=== PATIENT | male | born 1930 | race Caucasian/White ===

== ENCOUNTER 2016-06-03 08:03 | Inpatient (IN) | payer OTHER ==
[~2016-06-03] VITALS: Ht 180.3 cm; Wt 79.0 kg
[~2016-06-03 08:03] MED LIST: ADVAIR 100/501 DISK IH; ADVAIR HFA120 INHALA IH; ALBUTEROL SULF8.5 GM IH; ASPIR 8181 M1 PO; AZITHROMYCIN250 MG PO; B-121000 MC2 PO; CARVEDILOL3.125 MG PO; COMPAZINE10 MG PO; COREG3.125 M1 PO; COUMADIN5 MG PO; COZAAR100 MG PO; ENOXAPARIN80 MG/0.8; FISH OIL 1,0001 EAC8 PO; FOLIC ACID1 MG PO; FUROSEMIDE20 MG; FUROSEMIDE40 MG; FUROSEMIDE40 MG PO; GUAIFENESIN WI120 M1 PO; LASIX20 MG PO; LEVAQUIN500 MG PO; LEVOFLOXACIN250 MG; LISINOPRIL20 MG PO; MEDROL DOSEPAK4 MG PO; MUCINEX1200 MG PO; OMEPRAZOLE40 M1; PRAVACHOL10 MG PO; PREDNISONE20 MG; PREDNISONE20 MG PO; PRILOSEC40 MG PO; ROBITUSSIN100 MG/5 M PO; SPIRIVA1 INHALATI IH; TUSSIONEX PENN473 ML PO; ULTRAM50 MG PO; VITAMIN C1000 MG PO; XARELTO15 MG PO; XARELTO20 MG PO
[2016-06-03] MEDS ORDERED: XARELTO20 MG PO (08:22)
[2016-06-03] MEDS ORDERED: SYMBICORT60 INHALAT IH (08:23)
[2016-06-03 08:30] LABS: HEMATOCRIT 27.8 % (38.0-50.0); MCV 96.9 FL (86-99); PLATELET COUNT 157 K/uL (156-360); RBC DIS.WIDTH-CV 19.7 % (11.8-14.6); RBC DIS.WIDTH-SD 65.6 % (39-53); RED BLOOD COUNT 2.87 M/uL (4.00-5.50); WHITE BLOOD COUNT 6.1 K/uL (4.1-10.2)
[2016-06-03 08:58] LABS: ANION GAP 6 MEQ/L (2-14); CHLORIDE 99 MEQ/L (99-109); POTASSIUM 4.9 MEQ/L (3.7-5.4); SAMPLE HEMOLYSIS CHECK 0; SAMPLE ICTERIC CHECK 0; SAMPLE LIPEMIA CHECK 0; SODIUM 132 MEQ/L (136-147)
[2016-06-03 09:04] LABS: GFR ESTIMATE (CALCULATED) 44 mL/min/; GLUCOSE 168 mg/dL (70-99); UREA NITROGEN (BUN) 23 mg/dL (9-23)
[2016-06-03 09:09] LABS: TROP-I INTERPRETATION NEGATIVE; TROPONIN-I < 0.01 ng/mL (0.0-0.30)
[2016-06-03] MEDS ORDERED: AZITHROMYCIN500 M1 PO (10:46)
[2016-06-03 12:51] LABS: ADD MIUA? YES; BILIRUBIN NEGATIVE; BLOOD NEGATIVE; COLOR YELLOW ((YELLOW)); GLUCOSE (STRIP) NEGATIVE; KETONES NEGATIVE; LEUKOCYTES NEGATIVE; NITRITE NEGATIVE; PROTEIN (STRIP) 30; SPECIFIC GRAVITY 1.018 (1.000-1.030)
[2016-06-03 13:00] LABS: BACTERIA RARE /HPF; EPITHELIAL CELLS RARE /HPF; HYALINE CASTS 0-5 /LPF; MUCUS TRACE /LPF; UCUL ADDED? NO; WHITE BLOOD CELLS 0-5 /HPF (0-5)
[2016-06-03 13:20] LABS: INFLUENZA A VIRAL ANTIGEN NEGATIVE; INFLUENZA B VIRAL ANTIGEN NEGATIVE
[2016-06-03 15:00] VITALS: BP 127/62
[2016-06-03 15:34] LABS: TROP-I INTERPRETATION NEGATIVE; TROPONIN-I 0.12 ng/mL (0.0-0.30)
[2016-06-03 21:25] LABS: TROP-I INTERPRETATION NEGATIVE
[2016-06-03 23:00] VITALS: BP 129/60
[2016-06-04 03:00] VITALS: BP 120/58
[2016-06-04 06:27] LABS: EOSINOPHIL (%) 0 % (0-5); HEMATOCRIT 24.3 % (38.0-50.0); IMMATURE GRANULOCYTE (%) 0.3 % (0.0-0.7); LYMPHOCYTE COUNT 0.9 K/uL (1.0-2.8); MCHC 32.1 G/DL (30.0-36.0); MCV 93.5 FL (86-99); MEAN PLAT.VOLUME 9.8 uM^3 (9.0-12.4); MONOCYTE (%) 0.3 % (3-12); NEUTROPHIL (%) 67.8 % (45-76); PLATELET COUNT 124 K/uL (156-360); RBC DIS.WIDTH-CV 19.5 % (11.8-14.6); RBC DIS.WIDTH-SD 65.6 % (39-53)
[2016-06-04 06:28] LABS: WHITE BLOOD COUNT 2.9 K/uL (4.1-10.2)
[2016-06-04 06:40] LABS: ANION GAP 9 MEQ/L (2-14); CHLORIDE 100 MEQ/L (99-109); GFR ESTIMATE (CALCULATED) 51 mL/min/; GLUCOSE 190 mg/dL (70-99); POTASSIUM 5.2 MEQ/L (3.7-5.4); SAMPLE HEMOLYSIS CHECK 0; SAMPLE ICTERIC CHECK 0; SAMPLE LIPEMIA CHECK 0; SODIUM 130 MEQ/L (136-147); UREA NITROGEN (BUN) 28 mg/dL (9-23)
[2016-06-04 07:35] VITALS: BP 135/79
[2016-06-04 11:23] VITALS: BP 120/68
[2016-06-04 15:08] VITALS: BP 128/74
[2016-06-04 19:30] VITALS: BP 127/69
[2016-06-04 22:30] VITALS: BP 149/84
[2016-06-05 03:53] VITALS: BP 122/58
[2016-06-05 08:00] VITALS: BP 128/82
[2016-06-05 08:05] VITALS: BP 132/71
[2016-06-05 11:15] VITALS: BP 141/63
[2016-06-05] MEDS ORDERED: LEVOFLOXACIN750 MG PO (14:35)
[2016-06-05] MEDS ORDERED: ADVAIR HFA120 INHALA IH (14:36)
[2016-06-05] MEDS ORDERED: PREDNISONE20 MG PO (14:37)
[2016-06-05] MEDS ORDERED: SPIRIVA RESPIMAT4 GM IH (14:38)
[2016-06-05] MEDS ORDERED: PROAIR HFA8.5 GM IH (14:39)
[2016-06-05 16:00] VITALS: BP 150/69
[2016-06-05 18:37] VITALS: BP 154/69
== END 2016-06-05 19:20 | disposition home health service (06) | DRG 190 ==
LOC: EME 08:03 → EDOF 10:19 → 5EAST 15:15
PROVIDERS: Emergency Medicine; Internal Medicine
DX: J44.0 Chronic obstructive pulmonary disease with (acute) lower respiratory infection (principal); J18.9 Pneumonia, unspecified organism; J96.01 Acute respiratory failure with hypoxia; J44.1 Chronic obstructive pulmonary disease with (acute) exacerbation; E87.1 Hypo-osmolality and hyponatremia; D61.818 Other pancytopenia; C85.90 Non-Hodgkin lymphoma, unspecified, unspecified site; C95.90 Leukemia, unspecified not having achieved remission; I12.9 Hypertensive chronic kidney disease with stage 1 through stage 4 chronic kidney disease, or unspecified chronic kidney disease; N18.3 Chronic kidney disease, stage 3 (moderate); I48.0 Paroxysmal atrial fibrillation; I27.2 Other secondary pulmonary hypertension; Z79.01 Long term (current) use of anticoagulants; Z95.0 Presence of cardiac pacemaker; Z90.49 Acquired absence of other specified parts of digestive tract; Z88.1 Allergy status to other antibiotic agents; Z87.891 Personal history of nicotine dependence; Z88.0 Allergy status to penicillin; Z91.14 Patient's other noncompliance with medication regimen; Z86.718 Personal history of other venous thrombosis and embolism
CPT/HCPCS: 71010; 80048; 80202; 81003; 83605; 84484; 85025; 85027; 87040; 87070; 87205; 87449; 87502; 93005; 94010; 94640; 94640 76; 94667; 94668; 94799; 99202; 99281; 99285; C9113; J0692; J1956; J2920; J2930; J3370; J7030; J7050; J7512; J7644

== ENCOUNTER 2016-07-01 04:10 | Inpatient (IN) | payer OTHER ==
[2016-07-01] VITALS (9 sets, daily range): BP systolic 96–126; BP diastolic 50–63
[~2016-07-01] VITALS: Ht 170.2 cm; Wt 79.5 kg
[~2016-07-01 04:10] MED LIST changes: +AZITHROMYCIN500 M1 PO; +LEVOFLOXACIN750 MG PO; +PROAIR HFA8.5 GM IH; +SPIRIVA RESPIMAT4 GM IH; +SYMBICORT60 INHALAT IH
[2016-07-01 04:58] LABS: EOSINOPHIL (%) 1.3 % (0-5); HEMATOCRIT 28.3 % (38.0-50.0); IMMATURE GRANULOCYTE (%) 0.3 % (0.0-0.7); INSTRUMENT ABS NEUTROPHIL CT 1.3 K/uL; LYMPHOCYTE COUNT 1.6 K/uL (1.0-2.8); MCH 30.5 PG (29.0-34.0); MCHC 32.5 G/DL (30.0-36.0); MEAN PLAT.VOLUME 10.1 uM^3 (9.0-12.4); MONOCYTE COUNT 0.1 K/uL (0-0.8); NEUTROPHIL (%) 43.1 % (45-76); NEUTROPHIL COUNT 1.3 K/uL (1.8-6.4); PLATELET COUNT 99 K/uL (156-360); RBC DIS.WIDTH-CV 19.5 % (11.8-14.6); RBC DIS.WIDTH-SD 66.7 % (39-53); RED BLOOD COUNT 3.02 M/uL (4.00-5.50)
[2016-07-01 05:06] LABS: CHLORIDE 99 mEq/L (99-109); MCV 93.7 FL (86-99); POTASSIUM 4.3 mEq/L (3.7-5.4); SODIUM 134 mEq/L (136-147)
[2016-07-01 05:08] LABS: GLUCOSE 118 mg/dL (70-99)
[2016-07-01 05:09] LABS: ANION GAP 11 MEQ/L (2-14)
[2016-07-01 05:10] LABS: INTER. NORMALIZED RATIO 1.5; PROTHROMBIN TIME 15.3 (9.2-11.2); PTT 29.7 (25-32)
[2016-07-01 05:12] LABS: GFR ESTIMATE (CALCULATED) 51 mL/min/
[2016-07-01 05:13] LABS: UREA NITROGEN (BUN) 20 mg/dL (9-23)
[2016-07-01] MEDS ORDERED: COZAAR50 MG PO (09:10)
[2016-07-01] MEDS ORDERED: ADVAIR HFA120 INHALA IH (09:11)
[2016-07-01 10:28] LABS: ADD MIUA? NO; BILIRUBIN NEGATIVE; BLOOD NEGATIVE; COLOR AMBER ((YELLOW)); GLUCOSE (STRIP) NEGATIVE; KETONES NEGATIVE; LEUKOCYTES NEGATIVE; NITRITE NEGATIVE; PROTEIN (STRIP) NEGATIVE; UCUL ADDED? NO
[2016-07-01 13:44] LABS: TYPE OF FLUID PLEURAL
[2016-07-01 14:12] LABS: BODY FLUID LDH 102 IU/L; BODY FLUID PROTEIN 3.4 G/DL
[2016-07-01 16:02] LABS: BODY FLUID EOSINOPHILS 0 % (0-25); BODY FLUID RBC'S 2000 /MM^3 (0-100); BODY FLUID WBC'S 972 /MM^3 (0-500); MONONUCLEAR WBC'S 98 %; POLYNUCLEAR WBC'S 2 % (0-25)
[2016-07-01 21:51] LABS: ALKALINE PHOSPHATASE 104 IU/L (3-129); DIRECT BILIRUBIN 0.6 mg/dL (0.0-0.3); TOTAL BILIRUBIN 1.6 MG/DL (0.0-1.0)
[2016-07-01 23:45] LABS: C DIFF TOXIN NEGATIVE (NEGATIVE)
[2016-07-01 23:46] LABS: PROBE CHECK PASS; SPECIMEN PROCESSING CONTROL PASS
[2016-07-02 00:33] VITALS: BP 87/49
== END 2016-07-02 01:55 | disposition short-term general hospital (02) | DRG 536 ==
LOC: EME → EDBD 04:10 → EME 04:10 → EDOF 08:12 → 3EAST 08:12 → EDOF 09:10 → 3EAST 11:51
PROVIDERS: Emergency Medicine; Family Medicine; Internal Medicine Hematology & Oncology; Radiology Diagnostic Radiology
PROC: 0W993ZZ Drainage of Right Pleural Cavity, Percutaneous Approach (ICD-10-PCS; principal; 2016-07-01)
DX: S72.142A Displaced intertrochanteric fracture of left femur, initial encounter for closed fracture (principal); J90 Pleural effusion, not elsewhere classified; J44.9 Chronic obstructive pulmonary disease, unspecified; C91.40 Hairy cell leukemia not having achieved remission; I48.0 Paroxysmal atrial fibrillation; I50.9 Heart failure, unspecified; R59.1 Generalized enlarged lymph nodes; I49.5 Sick sinus syndrome; T14.8 Other injury of unspecified body region; N18.3 Chronic kidney disease, stage 3 (moderate); I87.8 Other specified disorders of veins; E78.5 Hyperlipidemia, unspecified; E66.9 Obesity, unspecified; I25.10 Atherosclerotic heart disease of native coronary artery without angina pectoris; W18.30XA Fall on same level, unspecified, initial encounter; Y93.9 Activity, unspecified; Y92.9 Unspecified place or not applicable; Y99.9 Unspecified external cause status; Z98.1 Arthrodesis status; Z90.49 Acquired absence of other specified parts of digestive tract; Z95.0 Presence of cardiac pacemaker; Z79.01 Long term (current) use of anticoagulants; Z86.718 Personal history of other venous thrombosis and embolism; Z85.038 Personal history of other malignant neoplasm of large intestine
CPT/HCPCS: 71010; 71020; 71260; 72192; 73502; 73552; 80048; 80076; 81003; 82945; 83615 91; 84157; 85025; 85027; 85610; 85730; 86850; 86880; 86900; 86901; 86920; 87070; 87205; 87493; 88108; 88305; 89051; 93005; 94640; 94640 76; 94799; 99202; 99281; 99285; J2270; J2405; J3010; J7030; P9017

== ENCOUNTER 2016-07-06 10:18 | Inpatient (IN) | payer OTHER ==
[~2016-07-06] VITALS: Ht 170.2 cm; Wt 86.3 kg
[~2016-07-06 10:18] MED LIST changes: +COZAAR50 MG PO
[2016-07-08 13:09] VITALS: BP 98/54
[2016-07-08] MEDS ORDERED: ACETAMINOPHEN325 M1 PO (13:28)
[2016-07-08] MEDS ORDERED: SENNA8.6 MG PO (13:29)
[2016-07-08] MEDS ORDERED: ZOLOFT25 MG PO (13:30)
[2016-07-08 16:52] LABS: ALKALINE PHOSPHATASE 103 IU/L (3-129); ANION GAP 7 MEQ/L (2-14); CHLORIDE 101 MEQ/L (99-109); GFR ESTIMATE (CALCULATED) 51 mL/min/; GLUCOSE 109 mg/dL (70-99); POTASSIUM 4.1 MEQ/L (3.7-5.4); SAMPLE HEMOLYSIS CHECK 0; SAMPLE ICTERIC CHECK 0; SAMPLE LIPEMIA CHECK 0; SODIUM 139 MEQ/L (136-147); TOTAL BILIRUBIN 1.3 MG/DL (0.0-1.0); UREA NITROGEN (BUN) 42 mg/dL (9-23)
[2016-07-08 17:25] LABS: HEMATOCRIT 26.6 % (38.0-50.0); MCH 30.9 PG (29.0-34.0); MCHC 31.6 G/DL (30.0-36.0); MEAN PLAT.VOLUME 9.4 uM^3 (9.0-12.4); PLATELET COUNT 107 K/uL (156-360); RBC DIS.WIDTH-CV 20.4 % (11.8-14.6); RBC DIS.WIDTH-SD 67.6 % (39-53); RED BLOOD COUNT 2.72 M/uL (4.00-5.50); WHITE BLOOD COUNT 3.5 K/uL (4.1-10.2)
[2016-07-08 17:39] LABS: MCV 97.8 FL (86-99)
[2016-07-08 23:50] VITALS: BP 90/53
[2016-07-09 06:09] VITALS: BP 110/55
[2016-07-09 16:14] VITALS: BP 94/64
[2016-07-09 19:49] LABS: HEMATOCRIT 29.4 % (38.0-50.0); MCH 30.9 PG (29.0-34.0); MCHC 31.6 G/DL (30.0-36.0); MCV 97.7 FL (86-99); MEAN PLAT.VOLUME 10.1 uM^3 (9.0-12.4); NRBC (%) 0.4 /100 WBC (0-0); PLATELET COUNT 138 K/uL (156-360); RBC DIS.WIDTH-CV 21.2 % (11.8-14.6); RBC DIS.WIDTH-SD 71.2 % (39-53); RED BLOOD COUNT 3.01 M/uL (4.00-5.50); WHITE BLOOD COUNT 5.4 K/uL (4.1-10.2)
[2016-07-09 20:03] LABS: ALKALINE PHOSPHATASE 117 IU/L (3-129); ANION GAP 5 MEQ/L (2-14); CHLORIDE 98 MEQ/L (99-109); GFR ESTIMATE (CALCULATED) 48 mL/min/; GLUCOSE 141 mg/dL (70-99); POTASSIUM 4.5 MEQ/L (3.7-5.4); SAMPLE HEMOLYSIS CHECK 0; SAMPLE ICTERIC CHECK 0; SAMPLE LIPEMIA CHECK 0; SODIUM 135 MEQ/L (136-147); TOTAL BILIRUBIN 1.3 MG/DL (0.0-1.0); UREA NITROGEN (BUN) 44 mg/dL (9-23)
[2016-07-10 05:12] LABS: BICARBONATE 27.9 mEq/L (22-26); COMMENTS - BLOOD GASES C+A+; METHEMOGLOBIN 1.4 % (0-1.5); O2 FLOW 15 L/MIN; PCO2 43 mm Hg (35-45); PO2 63 mm Hg (80-100); SITE RR; pH 7.42 (7.35-7.45)
[2016-07-10 05:13] LABS: DEVICE NRBM; FI02 100 %
[2016-07-10 06:09] LABS: TROP-I INTERPRETATION NEGATIVE; TROPONIN-I 0.03 ng/mL (0.0-0.30)
[2016-07-10 06:30] LABS: HEMATOCRIT 33.7 % (38.0-50.0); MCH 30.8 PG (29.0-34.0); MCHC 31.8 G/DL (30.0-36.0); MCV 97.1 FL (86-99); MEAN PLAT.VOLUME 10.5 uM^3 (9.0-12.4); NRBC (%) 0.7 /100 WBC (0-0); RBC DIS.WIDTH-CV 21.7 % (11.8-14.6); RBC DIS.WIDTH-SD 71.9 % (39-53); RED BLOOD COUNT 3.47 M/uL (4.00-5.50); WHITE BLOOD COUNT 5.6 K/uL (4.1-10.2)
[2016-07-10 06:31] LABS: PLATELET COUNT 187 K/uL (156-360)
[2016-07-10 06:39] LABS: ALKALINE PHOSPHATASE 129 IU/L (3-129); ANION GAP 11 MEQ/L (2-14); CHLORIDE 97 MEQ/L (99-109); GFR ESTIMATE (CALCULATED) 38 mL/min/; GLUCOSE 134 mg/dL (70-99); SAMPLE HEMOLYSIS CHECK 0; SAMPLE ICTERIC CHECK 0; SAMPLE LIPEMIA CHECK 0; SODIUM 134 MEQ/L (136-147); UREA NITROGEN (BUN) 49 mg/dL (9-23)
[2016-07-10 06:56] LABS: TOTAL BILIRUBIN 1.8 MG/DL (0.0-1.0)
== END 2016-07-10 05:33 | DRG 559 ==
LOC: 3WEST 10:18
PROVIDERS: Internal Medicine; Physical Medicine & Rehabilitation Pain Medicine; Psychiatry & Neurology Neurology
PROC: F07M0ZZ Range of Motion and Joint Mobility Treatment of Musculoskeletal System - Whole Body (ICD-10-PCS; principal; 2016-07-08)
DX: S72.92XD Unspecified fracture of left femur, subsequent encounter for closed fracture with routine healing (principal); R26.2 Difficulty in walking, not elsewhere classified; J96.01 Acute respiratory failure with hypoxia; D61.818 Other pancytopenia; C85.80 Other specified types of non-Hodgkin lymphoma, unspecified site; C91.10 Chronic lymphocytic leukemia of B-cell type not having achieved remission; K56.7 Ileus, unspecified; J90 Pleural effusion, not elsewhere classified; E87.1 Hypo-osmolality and hyponatremia; J44.9 Chronic obstructive pulmonary disease, unspecified; I48.2 Chronic atrial fibrillation; I25.10 Atherosclerotic heart disease of native coronary artery without angina pectoris; I12.9 Hypertensive chronic kidney disease with stage 1 through stage 4 chronic kidney disease, or unspecified chronic kidney disease; N18.9 Chronic kidney disease, unspecified; K21.9 Gastro-esophageal reflux disease without esophagitis; F32.9 Major depressive disorder, single episode, unspecified; Z79.01 Long term (current) use of anticoagulants; Z95.0 Presence of cardiac pacemaker; Z85.038 Personal history of other malignant neoplasm of large intestine; Z88.5 Allergy status to narcotic agent; Z88.0 Allergy status to penicillin; Z88.1 Allergy status to other antibiotic agents; Z86.718 Personal history of other venous thrombosis and embolism; E77.8 Other disorders of glycoprotein metabolism; E88.09 Other disorders of plasma-protein metabolism, not elsewhere classified
CPT/HCPCS: 36415; 36600; 71010; 71250; 74000; 74176; 80053; 82803; 83605; 84484; 85025; 85027; 87040; 93971; 94640; 94640 76; 97530 GP; 99202; Q0169

== ENCOUNTER 2016-07-10 05:17 | Inpatient (IN) | payer OTHER ==
[2016-07-10] VITALS (17 sets, daily range): BP systolic 83–108; BP diastolic 38–64
[~2016-07-10] VITALS: Ht 170.2 cm; Wt 87.1 kg
[~2016-07-10 05:17] MED LIST changes: +ACETAMINOPHEN325 M1 PO; +SENNA8.6 MG PO; +ZOLOFT25 MG PO
[2016-07-10 10:58] LABS: BASE EXCESS 4.5 mEq/L (-3 to +3); BICARBONATE 28.3 mEq/L (22-26); CARBOXY HGB 2.4 % (0-5); COMMENTS - BLOOD GASES A+C+; METHEMOGLOBIN 1.5 % (0-1.5); PCO2 38 mm Hg (35-45); PO2 74 mm Hg (80-100); SITE LR; pH 7.48 (7.35-7.45)
[2016-07-10 10:59] LABS: DEVICE HHFNC; FI02 50 %; O2 FLOW 35 L/MIN; TOTAL RESP RATE 22 resp/min
[2016-07-10 13:02] LABS: HEMATOCRIT 29.8 % (38.0-50.0); MCH 31.1 PG (29.0-34.0); MCHC 31.9 G/DL (30.0-36.0); MCV 97.7 FL (86-99); MEAN PLAT.VOLUME 10.2 uM^3 (9.0-12.4); NRBC (%) 0.3 /100 WBC (0-0); PLATELET COUNT 149 K/uL (156-360); RBC DIS.WIDTH-CV 21.6 % (11.8-14.6); RBC DIS.WIDTH-SD 71.4 % (39-53); RED BLOOD COUNT 3.05 M/uL (4.00-5.50)
[2016-07-10 13:28] LABS: ALKALINE PHOSPHATASE 115 IU/L (3-129); ANION GAP 9 MEQ/L (2-14); CHLORIDE 98 MEQ/L (99-109); GFR ESTIMATE (CALCULATED) 32 mL/min/; GLUCOSE 105 mg/dL (70-99); SAMPLE HEMOLYSIS CHECK 1; SAMPLE ICTERIC CHECK 0; SAMPLE LIPEMIA CHECK 0; SODIUM 135 MEQ/L (136-147); TOTAL BILIRUBIN 1.6 MG/DL (0.0-1.0); UREA NITROGEN (BUN) 51 mg/dL (9-23)
[2016-07-10 13:29] LABS: POTASSIUM 5.5 MEQ/L (3.7-5.4)
[2016-07-10 13:34] LABS: TROP-I INTERPRETATION NEGATIVE; TROPONIN-I 0.05 ng/mL (0.0-0.30)
[2016-07-10 15:54] LABS: METH RESISTANT S AUREUS PCR NEGATIVE (NEGATIVE)
[2016-07-10 16:01] LABS: PROBE CHECK PASS; SPECIMEN PROCESSING CONTROL PASS
[2016-07-10 18:04] LABS: INTER. NORMALIZED RATIO 1.6; PROTHROMBIN TIME 16.2 (9.2-11.2); PTT 29.8 (25-32)
[2016-07-10 19:39] LABS: TROP-I INTERPRETATION NEGATIVE; TROPONIN-I 0.05 ng/mL (0.0-0.30)
[2016-07-11] VITALS (11 sets, daily range): BP systolic 85–111; BP diastolic 40–54
[2016-07-11 06:28] LABS: HEMATOCRIT 23.8 % (38.0-50.0); MCH 30.7 PG (29.0-34.0); MCHC 30.7 G/DL (30.0-36.0); RBC DIS.WIDTH-CV 22.2 % (11.8-14.6); RBC DIS.WIDTH-SD 77.2 % (39-53); WHITE BLOOD COUNT 4.2 K/uL (4.1-10.2)
[2016-07-11 06:37] LABS: ANION GAP 10 MEQ/L (2-14); CHLORIDE 104 MEQ/L (99-109); GFR ESTIMATE (CALCULATED) 32 mL/min/; GLUCOSE 92 mg/dL (70-99); POTASSIUM 4.7 MEQ/L (3.7-5.4); SAMPLE HEMOLYSIS CHECK 0; SAMPLE ICTERIC CHECK 0; SAMPLE LIPEMIA CHECK 0; SODIUM 141 MEQ/L (136-147); UREA NITROGEN (BUN) 54 mg/dL (9-23)
[2016-07-11 06:40] LABS: ALKALINE PHOSPHATASE 83 IU/L (3-129); TOTAL BILIRUBIN 1.2 MG/DL (0.0-1.0)
[2016-07-11 06:41] LABS: RED BLOOD COUNT 2.38 M/uL (4.00-5.50)
[2016-07-11 12:48] LABS: HEMATOLOGY COMMENT 1 SMEAR COMPATIBLE; MEAN PLAT.VOLUME 10.4 uM^3 (9.0-12.4); PLAT.SUFFICIENCY DECREASED; PLATELET COUNT 109 K/uL (156-360)
[2016-07-11 15:14] LABS: HEMATOCRIT 24.7 % (38.0-50.0); MCV 101.2 FL (86-99)
[2016-07-11 18:18] LABS: HEMATOCRIT 24.7 % (38.0-50.0); MCV 101.2 FL (86-99)
[2016-07-12] VITALS (17 sets, daily range): BP systolic 0–127; BP diastolic 0–70
[2016-07-12 05:59] LABS: HEMATOCRIT 27.4 % (38.0-50.0); MCH 30.2 PG (29.0-34.0); MCHC 30.3 G/DL (30.0-36.0); MCV 99.6 FL (86-99); MEAN PLAT.VOLUME 9.5 uM^3 (9.0-12.4); PLATELET COUNT 105 K/uL (156-360); RBC DIS.WIDTH-CV 22.5 % (11.8-14.6); RBC DIS.WIDTH-SD 75.3 % (39-53); RED BLOOD COUNT 2.75 M/uL (4.00-5.50); WHITE BLOOD COUNT 3.5 K/uL (4.1-10.2)
[2016-07-12 06:28] LABS: ABS NEUTROPHIL COUNT 2.8; EOSINOPHIL ABS CT 0; INSTRUMENT ABS NEUTROPHIL CT 2.4 K/uL; LYMPHOCYTES 19.5 % (15.0-45.0); METAMYELOCYTES 0.9 %; SEG.NEUTROPHILS 78.7 % (46.0-76.0)
[2016-07-12 06:38] LABS: ANION GAP 12 MEQ/L (2-14); CHLORIDE 108 MEQ/L (99-109); GFR ESTIMATE (CALCULATED) 38 mL/min/; GLUCOSE 72 mg/dL (70-99); POTASSIUM 4.2 MEQ/L (3.7-5.4); SAMPLE HEMOLYSIS CHECK 0; SAMPLE ICTERIC CHECK 0; SAMPLE LIPEMIA CHECK 0; SODIUM 143 MEQ/L (136-147); UREA NITROGEN (BUN) 46 mg/dL (9-23)
[2016-07-13 06:06] LABS: EOSINOPHIL (%) 0.3 % (0-5); HEMATOCRIT 28.3 % (38.0-50.0); IMMATURE GRANULOCYTE (%) 0.9 % (0.0-0.7); MCH 30.6 PG (29.0-34.0); MCHC 30.7 G/DL (30.0-36.0); MCV 99.6 FL (86-99); MEAN PLAT.VOLUME 9.4 uM^3 (9.0-12.4); MONOCYTE (%) 2.8 % (3-12); MONOCYTE COUNT 0.1 K/uL (0-0.8); NEUTROPHIL (%) 64.2 % (45-76); NRBC (%) 0.9 /100 WBC (0-0); PLATELET COUNT 107 K/uL (156-360); RBC DIS.WIDTH-CV 23.1 % (11.8-14.6); RBC DIS.WIDTH-SD 81.9 % (39-53); RED BLOOD COUNT 2.84 M/uL (4.00-5.50); WHITE BLOOD COUNT 3.2 K/uL (4.1-10.2)
[2016-07-13 06:32] LABS: ANION GAP 12 MEQ/L (2-14); CHLORIDE 111 MEQ/L (99-109); GFR ESTIMATE (CALCULATED) 51 mL/min/; GLUCOSE 81 mg/dL (70-99); POTASSIUM 3.9 MEQ/L (3.7-5.4); SAMPLE HEMOLYSIS CHECK 0; SAMPLE ICTERIC CHECK 0; SAMPLE LIPEMIA CHECK 0; SODIUM 143 MEQ/L (136-147); UREA NITROGEN (BUN) 34 mg/dL (9-23)
[2016-07-13 07:58] VITALS: BP 116/58
[2016-07-13 11:38] VITALS: BP 121/66
[2016-07-13 16:05] VITALS: BP 116/63
[2016-07-13 23:00] VITALS: BP 130/58
[2016-07-14 06:36] LABS: ANION GAP 11 MEQ/L (2-14); CHLORIDE 112 MEQ/L (99-109); GFR ESTIMATE (CALCULATED) 48 mL/min/; POTASSIUM 4.6 MEQ/L (3.7-5.4); SAMPLE HEMOLYSIS CHECK 0; SAMPLE ICTERIC CHECK 0; SAMPLE LIPEMIA CHECK 0; SODIUM 144 MEQ/L (136-147); UREA NITROGEN (BUN) 33 mg/dL (9-23)
[2016-07-14 06:39] LABS: GLUCOSE 142 mg/dL (70-99)
[2016-07-14 07:02] VITALS: BP 111/52
[2016-07-14 15:45] VITALS: BP 129/69
[2016-07-14 23:06] VITALS: BP 105/74
[2016-07-15 06:57] LABS: ANION GAP 9 MEQ/L (2-14); CHLORIDE 110 MEQ/L (99-109); GFR ESTIMATE (CALCULATED) 48 mL/min/; GLUCOSE 140 mg/dL (70-99); POTASSIUM 4.7 MEQ/L (3.7-5.4); SAMPLE HEMOLYSIS CHECK 0; SAMPLE ICTERIC CHECK 0; SAMPLE LIPEMIA CHECK 0; SODIUM 143 MEQ/L (136-147); UREA NITROGEN (BUN) 36 mg/dL (9-23)
[2016-07-15 08:30] VITALS: BP 119/64
[2016-07-15] MEDS ORDERED: FUROSEMIDE20 MG PO (09:38)
[2016-07-15] MEDS ORDERED: MISOPROSTOL200 MCG PO (09:38)
[2016-07-15] MEDS ORDERED: PANTOPRAZOLE SO40 MG PO (09:39)
[2016-07-15] MEDS ORDERED: PREDNISONE10 MG PO (09:40)
== END 2016-07-15 17:13 | DRG 189 ==
LOC: 3EAST 05:17 → 4WEST 05:48 → 3EAST 12:10 → 4WEST 14:02 → 5EAST 07-12 19:51
PROVIDERS: Hospitalist; Internal Medicine; Internal Medicine Gastroenterology; Student in an Organized Health Care Education/Training Program
PROC: 0W993ZZ Drainage of Right Pleural Cavity, Percutaneous Approach (ICD-10-PCS; principal; 2016-07-10)
DX: J96.01 Acute respiratory failure with hypoxia (principal); J69.0 Pneumonitis due to inhalation of food and vomit; J90 Pleural effusion, not elsewhere classified; C91.10 Chronic lymphocytic leukemia of B-cell type not having achieved remission; K56.7 Ileus, unspecified; N17.9 Acute kidney failure, unspecified; J98.11 Atelectasis; D61.818 Other pancytopenia; J44.1 Chronic obstructive pulmonary disease with (acute) exacerbation; N18.3 Chronic kidney disease, stage 3 (moderate); I95.9 Hypotension, unspecified; E66.01 Morbid (severe) obesity due to excess calories; I50.9 Heart failure, unspecified; I48.2 Chronic atrial fibrillation; G47.00 Insomnia, unspecified; R59.1 Generalized enlarged lymph nodes; K21.9 Gastro-esophageal reflux disease without esophagitis; I25.10 Atherosclerotic heart disease of native coronary artery without angina pectoris; S72.142D Displaced intertrochanteric fracture of left femur, subsequent encounter for closed fracture with routine healing; Z68.30 Body mass index [BMI] 30.0-30.9, adult; Z79.01 Long term (current) use of anticoagulants; Z90.49 Acquired absence of other specified parts of digestive tract; Z95.0 Presence of cardiac pacemaker; Z85.038 Personal history of other malignant neoplasm of large intestine; Z88.0 Allergy status to penicillin; Z88.3 Allergy status to other anti-infective agents; Z88.6 Allergy status to analgesic agent; Z87.891 Personal history of nicotine dependence; Z86.718 Personal history of other venous thrombosis and embolism; Z86.711 Personal history of pulmonary embolism
CPT/HCPCS: 36600; 71010; 74000; 80048; 80053; 82272; 82803; 84132 91; 84484; 85014; 85018; 85025; 85027; 85610; 85730; 86850; 86900; 86901; 86920; 87641; 93005; 94640; 94640 76; 94760; 94799; 97530 GP; 99202; C9113; J1940; J1956; J2405; J2765; J7030; J7040; J7512; P9016; S0028; S0030

== ENCOUNTER 2016-08-08 15:06 | Inpatient (IN) | payer OTHER ==
[~2016-08-08] VITALS: Ht 175.3 cm; Wt 89.2 kg
[~2016-08-08 15:06] MED LIST changes: +FUROSEMIDE20 MG PO; +MISOPROSTOL200 MCG PO; +PANTOPRAZOLE SO40 MG PO; +PREDNISONE10 MG PO
[2016-08-08 16:44] LABS: ADD MIUA? YES; BILIRUBIN NEGATIVE; BLOOD NEGATIVE; COLOR AMBER ((YELLOW)); GLUCOSE (STRIP) NEGATIVE; KETONES NEGATIVE; LEUKOCYTES NEGATIVE; NITRITE NEGATIVE; PROTEIN (STRIP) 30; SPECIFIC GRAVITY 1.013 (1.000-1.030); UROBILINOGEN 0.2 MG/DL (0.2-1.0)
[2016-08-08 17:14] LABS: CHLORIDE 105 mEq/L (99-109); HEMATOCRIT 27.7 % (38.0-50.0); MCH 32.6 PG (29.0-34.0); MCHC 32.1 G/DL (30.0-36.0); MCV 101.5 FL (86-99); RBC DIS.WIDTH-CV 22.6 % (11.8-14.6); RBC DIS.WIDTH-SD 82.9 % (39-53); RED BLOOD COUNT 2.73 M/uL (4.00-5.50); WHITE BLOOD COUNT 2.2 K/uL (4.1-10.2)
[2016-08-08 17:15] LABS: POTASSIUM 4.6 mEq/L (3.7-5.4); SODIUM 140 mEq/L (136-147)
[2016-08-08 17:17] LABS: GLUCOSE 122 mg/dL (70-99)
[2016-08-08 17:18] LABS: ANION GAP 10 MEQ/L (2-14)
[2016-08-08 17:19] LABS: TOTAL BILIRUBIN 1.5 mg/dL (0.0-1.0)
[2016-08-08 17:20] LABS: ALKALINE PHOSPHATASE 161 IU/L (3-129); GFR ESTIMATE (CALCULATED) 20 mL/min/
[2016-08-08 17:21] LABS: UREA NITROGEN (BUN) 44 mg/dL (9-23)
[2016-08-08 17:38] LABS: BACTERIA RARE /HPF; EPITHELIAL CELLS RARE /HPF; MUCUS TRACE /LPF; RED BLOOD CELLS 0-5 /HPF (0-5); UCUL ADDED? NO; WHITE BLOOD CELLS 0-5 /HPF (0-5)
[2016-08-08 17:52] LABS: EOSINOPHIL (%) 1.3 % (0-5); IMMATURE GRANULOCYTE (%) 0.4 % (0.0-0.7); INSTRUMENT ABS NEUTROPHIL CT 0.9 K/uL; LYMPHOCYTE COUNT 1.2 K/uL (1.0-2.8); MEAN PLAT.VOLUME 11.2 uM^3 (9.0-12.4); MONOCYTE (%) 2.2 % (3-12); MONOCYTE COUNT 0.1 K/uL (0-0.8); NEUTROPHIL (%) 40.5 % (45-76); NEUTROPHIL COUNT 0.9 K/uL (1.8-6.4)
[2016-08-08 18:01] LABS: PLATELET COUNT 80 K/uL (156-360)
[2016-08-08 18:28] LABS: CASTS PRESENT /LPF
[2016-08-08] MEDS ORDERED: MELATONIN1 M2 PO (18:54)
[2016-08-08] MEDS ORDERED: CYANOCOBALAM1000 MCG PO (18:55)
[2016-08-08] MEDS ORDERED: CARVEDILOL3.125 MG PO (18:55)
[2016-08-08] MEDS ORDERED: XARELTO20 MG PO (19:00)
[2016-08-08] MEDS ORDERED: SPIRIVA RESPIMAT4 GM IH (19:01)
[2016-08-08] MEDS ORDERED: ADVAIR HFA120 INHALA IH (19:02)
[2016-08-08] MEDS ORDERED: PRAVACHOL10 MG PO (19:02)
[2016-08-08] MEDS ORDERED: SENNA8.6 MG PO (19:03)
[2016-08-08] MEDS ORDERED: ZOLOFT25 MG PO (19:04)
[2016-08-08] MEDS ORDERED: LASIX20 MG PO (19:04)
[2016-08-08] MEDS ORDERED: MISOPROSTOL200 MCG PO (19:04)
[2016-08-08] MEDS ORDERED: CALCIUM 600 WI1 EAC2 PO (19:05)
[2016-08-08] MEDS ORDERED: POTASSIUM CHLO20 ME2 PO (19:06)
[2016-08-08] MEDS ORDERED: PEPTO BISMOL262 MG PO (19:08)
[2016-08-08] MEDS ORDERED: ZOFRAN8 MG PO (19:09)
[2016-08-08] MEDS ORDERED: BISAC-EVAC10 MG PR (19:10)
[2016-08-08] MEDS ORDERED: MILK OF MAGN PO (19:10)
[2016-08-08] MEDS ORDERED: FLEET ENEMA-AD118 ML PR (19:12)
[2016-08-08] MEDS ORDERED: PROVENTIL HFA6.7 GM IH (19:15)
[2016-08-08] MEDS ORDERED: TYLENOL REGULA325 MG PO (19:16)
[2016-08-08] MEDS ORDERED: ZOFRAN4 MG PO (19:17)
[2016-08-08 21:13] VITALS: BP 90/53
[2016-08-08 21:50] LABS: INTER. NORMALIZED RATIO 1.5; PROTHROMBIN TIME 15.9 (9.2-11.2)
[2016-08-08 22:59] VITALS: BP 88/48
[2016-08-08 23:16] LABS: UR CREATININE CONCENTRATION 124.2 MG/DL; UR CREATININE CONCENTRATION 125.2 MG/DL
[2016-08-09 04:26] VITALS: BP 91/58
[2016-08-09 06:41] LABS: INTER. NORMALIZED RATIO 1.4; PROTHROMBIN TIME 14.8 (9.2-11.2)
[2016-08-09 06:46] LABS: ANION GAP 14 MEQ/L (2-14); CHLORIDE 105 MEQ/L (99-109); GFR ESTIMATE (CALCULATED) 21 mL/min/; POTASSIUM 4.3 MEQ/L (3.7-5.4); SAMPLE HEMOLYSIS CHECK 0; SAMPLE ICTERIC CHECK 0; SAMPLE LIPEMIA CHECK 0; SODIUM 141 MEQ/L (136-147); UREA NITROGEN (BUN) 42 mg/dL (9-23)
[2016-08-09 06:56] LABS: GLUCOSE 90 mg/dL (70-99)
[2016-08-09 07:41] VITALS: BP 104/53
[2016-08-09 08:30] LABS: INTACT PARATHYROID HORMONE 20 pg/mL (10-69)
[2016-08-09 11:58] VITALS: BP 97/55
[2016-08-09 16:27] VITALS: BP 92/54
[2016-08-09 20:00] VITALS: BP 118/53
[2016-08-09 23:38] VITALS: BP 104/52
[2016-08-10 03:48] VITALS: BP 94/51
[2016-08-10 06:28] LABS: INTER. NORMALIZED RATIO 1.4; PROTHROMBIN TIME 14.8 (9.2-11.2)
[2016-08-10 06:30] LABS: ANION GAP 11 MEQ/L (2-14); CHLORIDE 107 MEQ/L (99-109); GFR ESTIMATE (CALCULATED) 23 mL/min/; GLUCOSE 110 mg/dL (70-99); POTASSIUM 4.2 MEQ/L (3.7-5.4); SAMPLE HEMOLYSIS CHECK 0; SAMPLE ICTERIC CHECK 0; SAMPLE LIPEMIA CHECK 0; SODIUM 143 MEQ/L (136-147); UREA NITROGEN (BUN) 41 mg/dL (9-23)
[2016-08-10 06:47] LABS: HEMATOCRIT 26.1 % (38.0-50.0); MCHC 30.7 G/DL (30.0-36.0); MCV 104.4 FL (86-99); MEAN PLAT.VOLUME 10.7 uM^3 (9.0-12.4); PLATELET COUNT 62 K/uL (156-360); RBC DIS.WIDTH-CV 22.7 % (11.8-14.6)
[2016-08-10 07:00] LABS: EOSINOPHIL (%) 2.8 % (0-5); EOSINOPHIL COUNT 0.1 K/uL (0-0.3); IMMATURE GRANULOCYTE (%) 1.1 % (0.0-0.7); INSTRUMENT ABS NEUTROPHIL CT 0.8 K/uL; LYMPHOCYTE COUNT 0.8 K/uL (1.0-2.8); MONOCYTE (%) 1.7 % (3-12); NEUTROPHIL (%) 46.1 % (45-76); NEUTROPHIL COUNT 0.8 K/uL (1.8-6.4)
[2016-08-10 07:11] LABS: WHITE BLOOD COUNT 1.8 K/uL (4.1-10.2)
[2016-08-10 07:34] VITALS: BP 103/55
[2016-08-10 11:43] VITALS: BP 105/54
[2016-08-10 16:00] VITALS: BP 88/53
[2016-08-10 19:52] VITALS: BP 90/61
[2016-08-10 23:30] VITALS: BP 112/53
[2016-08-11 03:28] VITALS: BP 110/54
[2016-08-11 06:36] LABS: HEMATOCRIT 24.9 % (38.0-50.0); MCHC 30.9 G/DL (30.0-36.0); MCV 103.3 FL (86-99); RBC DIS.WIDTH-CV 22.5 % (11.8-14.6); RBC DIS.WIDTH-SD 84.7 % (39-53); RED BLOOD COUNT 2.41 M/uL (4.00-5.50)
[2016-08-11 06:43] LABS: WHITE BLOOD COUNT 1.8 K/uL (4.1-10.2)
[2016-08-11 06:53] LABS: ANION GAP 11 MEQ/L (2-14); CHLORIDE 105 MEQ/L (99-109); GFR ESTIMATE (CALCULATED) 20 mL/min/; GLUCOSE 113 mg/dL (70-99); POTASSIUM 4.3 MEQ/L (3.7-5.4); SAMPLE HEMOLYSIS CHECK 0; SAMPLE ICTERIC CHECK 0; SAMPLE LIPEMIA CHECK 0; SODIUM 141 MEQ/L (136-147); UREA NITROGEN (BUN) 42 mg/dL (9-23)
[2016-08-11 06:57] LABS: INTER. NORMALIZED RATIO 1.7; PROTHROMBIN TIME 17.6 (9.2-11.2)
[2016-08-11 07:41] LABS: ABS NEUTROPHIL COUNT 1.1; ANISOCYTOSIS 1+; ATYPICAL LYMPHOCYTE 10.9 %; BAND NEUTROPHILS 26.5 % (0-8.0); BASOPHILS 1.2 %; EOSINOPHIL ABS CT 0; EOSINOPHILS 2.4 % (0-5.0); INSTRUMENT ABS NEUTROPHIL CT 0.8 K/uL; LYMPHOCYTES 24.1 % (15.0-45.0); MACROCYTES 1+; MEAN PLAT.VOLUME 11.2 uM^3 (9.0-12.4); MICROCYTOSIS 1+; PLAT.SUFFICIENCY DECREASED; PLATELET COUNT 61 K/uL (156-360); POIKILOCYTOSIS 1+
[2016-08-11 07:50] VITALS: BP 100/53
[2016-08-11 07:50] LABS: SEG.NEUTROPHILS 34.9 % (46.0-76.0)
[2016-08-11 12:12] VITALS: BP 101/52
[2016-08-11 15:24] VITALS: BP 100/58
[2016-08-11 23:22] VITALS: BP 83/50
[2016-08-12 07:20] LABS: ANION GAP 11 MEQ/L (2-14); CHLORIDE 105 MEQ/L (99-109); GFR ESTIMATE (CALCULATED) 16 mL/min/; GLUCOSE 89 mg/dL (70-99); POTASSIUM 4.2 MEQ/L (3.7-5.4); SAMPLE HEMOLYSIS CHECK 0; SAMPLE ICTERIC CHECK 0; SAMPLE LIPEMIA CHECK 0; SODIUM 139 MEQ/L (136-147); UREA NITROGEN (BUN) 45 mg/dL (9-23)
[2016-08-12 08:10] VITALS: BP 95/54
[2016-08-12] MEDS ORDERED: HYOSCYAMINE0.125 M2 PO (13:29)
[2016-08-12] MEDS ORDERED: MORPHINE CON20 MG/M1 PO (13:29)
[2016-08-12] MEDS ORDERED: ATIVAN INTE2 MG/1 ML PO ×2 (13:29→13:31)
[2016-08-12] MEDS ORDERED: ZOFRAN4 MG PO (16:12)
[2016-08-12] MEDS ORDERED: LASIX20 MG PO (16:12)
[2016-08-12] MEDS ORDERED: TYLENOL REGULA325 MG PO (16:12)
[2016-08-12] MEDS ORDERED: SPIRIVA RESPIMAT4 GM IH (16:12)
[2016-08-12] MEDS ORDERED: METOCLOPRAMIDE H5 MG PO (16:12)
[2016-08-12] MEDS ORDERED: ZOLOFT25 MG PO (16:12)
[2016-08-12] MEDS ORDERED: ADVAIR HFA120 INHALA IH (16:12)
[2016-08-12] MEDS ORDERED: PROVENTIL HFA6.7 GM IH (16:12)
[2016-08-12] MEDS ORDERED: SENNA8.6 MG PO (16:13)
[2016-08-12 16:58] VITALS: BP 96/52
== END 2016-08-12 18:28 | disposition hospice, home (50) | DRG 683 ==
LOC: EME 15:06 → EDOF 19:43 → 4EAST 19:43 → 4SOUTH 19:43 → 4EAST 20:50 → 4SOUTH 08-09 07:34 → 5EAST 08-11 14:36
PROVIDERS: Emergency Medicine; Internal Medicine; Internal Medicine Nephrology
DX: N17.9 Acute kidney failure, unspecified (principal); T50.1X5A Adverse effect of loop [high-ceiling] diuretics, initial encounter; I13.0 Hypertensive heart and chronic kidney disease with heart failure and stage 1 through stage 4 chronic kidney disease, or unspecified chronic kidney disease; N18.4 Chronic kidney disease, stage 4 (severe); I50.32 Chronic diastolic (congestive) heart failure; D61.818 Other pancytopenia; E44.0 Moderate protein-calorie malnutrition; C91.10 Chronic lymphocytic leukemia of B-cell type not having achieved remission; I48.2 Chronic atrial fibrillation; I25.10 Atherosclerotic heart disease of native coronary artery without angina pectoris; J44.9 Chronic obstructive pulmonary disease, unspecified; I27.2 Other secondary pulmonary hypertension; I27.81 Cor pulmonale (chronic); E78.5 Hyperlipidemia, unspecified; F32.9 Major depressive disorder, single episode, unspecified; Z51.5 Encounter for palliative care; Z85.038 Personal history of other malignant neoplasm of large intestine; Z68.25 Body mass index [BMI] 25.0-25.9, adult; Z88.0 Allergy status to penicillin; Z88.1 Allergy status to other antibiotic agents; Z88.5 Allergy status to narcotic agent; Z79.01 Long term (current) use of anticoagulants; Z86.718 Personal history of other venous thrombosis and embolism
CPT/HCPCS: 36415; 71010; 76770; 80048; 80053; 80069; 81003; 82306; 82570; 83970; 84156; 84300; 85025; 85610; 87177; 87493; 94640; 94640 76; 94760; 94799; 99202; 99281; 99285; J7030; P9047